=== PATIENT | female | born 1975 | race Caucasian/White ===

== ENCOUNTER → 2017-01-04 | Outpatient (CLI) | payer MEDICAID ==
[~2017-01-04] MED LIST: ALBU8.5H2 IH; FLUT1DIS26 IH; HYDR-3456 PO; HYDR-3812 PO; HYDR25TA4 PO; IBUP-1773 PO; IBUP800T26 PO; LEVO25TA5 PO; LIRA0.6P3 SQ; LISI-552 PO; METF500T4 PO; ORPH100T PO; PRED20TA PO; RT-ALBUINH IH; TIOT18CA2 IH
--- NOTE | 2017-01-04 18:20 | Diagnostic Imaging Report ---
Digital mammogram bilateral screening. This is the patient's baseline study. At this time, there are no current complaints. The current study was also evaluated with a Computer Aided Detection (CAD) system. FINDINGS: The fibroglandular tissue in both breasts is heterogeneously dense. This does limit the sensitivity of this exam. There is no primary or secondary sign of malignancy noted. There are few benign-appearing calcifications in both breasts. IMPRESSION: 1. There is no evidence for malignancy. 2. The patient should have her annual bilateral screening mammogram on schedule in December of 2017. ACR BI-RADS Category 1: Negative. Result letter will be mailed to the patient. Note: At least 10% of breast cancer is not imaged by mammography. Dictated by: Dictated on workstation # [id number]
== END ==
LOC: RAD 14:07
PROVIDERS: ATTEND Nurse Practitioner Community Health
DX: Z12.31 Encounter for screening mammogram for malignant neoplasm of breast (principal)
CPT/HCPCS: 77067

== ENCOUNTER 2017-01-06 10:00 | Outpatient (RCR) | payer MEDICAID ==
[~2017-01-06 10:00] MED LIST changes: -FLUT1DIS26 IH; -HYDR-3812 PO; -LIRA0.6P3 SQ; -RT-ALBUINH IH; -TIOT18CA2 IH
== END 2017-01-09 | disposition home or self-care (01) ==
LOC: PULM 10:00
PROVIDERS: ATTEND Nurse Practitioner Family
DX: R06.00 Dyspnea, unspecified (principal); R09.02 Hypoxemia
CPT/HCPCS: 94799; 99211

== ENCOUNTER 2017-01-20 09:10 | Outpatient (RCR) | payer MEDICAID ==
[2017-02-02] MEDS ORDERED: RT-ALBUINH IH (10:45)
[2017-02-02] MEDS ORDERED: TIOT18CA2 IH (10:45)
[2017-02-02] MEDS ORDERED: FLUT1DIS26 IH (10:45)
[2017-02-02] MEDS ORDERED: LIRA0.6P3 SQ (10:45)
[2017-02-16] MEDS ORDERED: HYDR-3812 PO (08:45)
== END 2017-04-20 | disposition home or self-care (01) ==
LOC: PULM 09:10
PROVIDERS: ATTEND Nurse Practitioner Family
DX: R06.00 Dyspnea, unspecified (principal); R09.02 Hypoxemia

== ENCOUNTER 2017-02-02 10:30 | Outpatient (CLI) | payer MEDICAID ==
[~2017-02-02] VITALS: Ht 154.9 cm; Wt 116.6 kg
[2017-02-02 10:40] VITALS: BP 137/81
[2017-02-02] MEDS ORDERED: FLUT1DIS26 IH (10:45)
[2017-02-02] MEDS ORDERED: LIRA0.6P3 SQ (10:45)
[2017-02-02] MEDS ORDERED: TIOT18CA2 IH (10:45)
[2017-02-02] MEDS ORDERED: RT-ALBUINH IH (10:45)
== END 2017-02-02 10:50 | disposition home or self-care (01) ==
LOC: PREOP 10:30
PROVIDERS: ATTEND Orthopaedic Surgery
DX: Z01.818 Encounter for other preprocedural examination (principal); Z11.2 Encounter for screening for other bacterial diseases; G56.01 Carpal tunnel syndrome, right upper limb
CPT/HCPCS: 87081

== ENCOUNTER 2017-02-16 06:00 | Day surgery (SDC) | payer MEDICAID ==
--- NOTE | 2017-02-08 14:30 | HISTORY AND PHYSICAL ---
DATE OF ADMISSION: 02/16/2017 This will be for outpatient for right carpal tunnel release. HISTORY: The patient is a 41-year-old left hand dominant female with complaints of right hand pain and paresthesias. She underwent an EMG nerve conduction which revealed evidence of right carpal tunnel syndrome. She reports night pain. She reports paresthesias. She reports activity limitations because of the hand. She reports it has been off and on over the last several years but has worsened over the last few months and due to functional impairment, the patient has elected to proceed with surgical intervention. REVIEW OF SYSTEMS: No chest pain, no shortness of breath. No dysuria. PAST MEDICAL HISTORY: 1. Back pain. 2. COPD. 3. Hypertension. 4. Hypothyroidism. 5. Sleep apnea. 6. Sciatica. 7. Hypoxemia "borderline" diabetic. PAST SURGICAL HISTORY: . FAMILY HISTORY: Hypertension. PRIMARY CARE PROVIDER: [facility]. MEDICATIONS: 1. Victoza. 2. Spiriva. 3. Ventolin. 4. Advair. 5. Metformin. 6. Hydrochlorothiazide. 7. Levothyroxine. 8. Lisinopril. ALLERGIES: No known drug allergies. SOCIAL HISTORY: The patient denies alcohol use. She is a former smoker. PHYSICAL EXAMINATION: The patient is well-developed, well-nourished, in no acute distress. HEENT: Normocephalic, atraumatic. Pupils are equal, round, and active to light. Oropharynx is clear. NECK: Supple with no lymphadenopathy. LUNGS: Clear to auscultation bilaterally. HEART: Regular rate and rhythm. ABDOMEN: Soft, nontender, nondistended. EXTREMITY EXAM: The right hand demonstrates positive Tinel's of carpal tunnel with positive Phalen's maneuver. She has 5/5 thumb palmar abduction strength. Sensation is intact in radial, ulnar and median distribution. IMPRESSION: Right carpal tunnel syndrome. PLAN: Right open carpal tunnel release. The risks, benefits, options, ramifications and recovery have been discussed at length with the patient. She understands and wishes to proceed. Job ID: [id number] Dictated Date: 02/08/2017 13:12:39 Blackjack Supervisor Date: 02/08/2017 14:23:55/robin
[~2017-02-16] VITALS: Ht 154.9 cm; Wt 116.6 kg
[~2017-02-16 06:00] MED LIST changes: +FLUT1DIS26 IH; +LIRA0.6P3 SQ; +RT-ALBUINH IH; +TIOT18CA2 IH
[2017-02-16] MEDS ORDERED: ceFAZolin 1,000 MG (ANCEF) VIAL ONE (06:23)
[2017-02-16] MEDS ORDERED: NS (IVPB) 50 ML ONE (06:23)
[2017-02-16] MEDS ORDERED: LACTATED RINGERS 1,000 ML IV PRN (06:34)
[2017-02-16] MEDS ORDERED: MIDAZOLAM 2 MG/2 ML (VERSED) VIAL ONE (06:47)
[2017-02-16] MEDS ORDERED: PROPOFOL INJECTION 50 ML IV ONE (06:47)
[2017-02-16] MEDS ORDERED: fentaNYL INJECTION 100 MCG/2 ML AMP ONE (06:47)
[2017-02-16] MEDS ORDERED: MIDAZOLAM 10 MG/2 ML (VERSED) VIAL ONE (06:50)
[2017-02-16 06:53] VITALS: BP 149/98
[2017-02-16] MEDS ORDERED: ceFAZolin 1 GM/NS 50 ML IVPB IV ONE ×2 (07:00)
[2017-02-16] MEDS ORDERED: BUPIVACAINE 0.25% 30 ML (SENSORCAINE) VIAL ONE (07:07)
[2017-02-16] MEDS ORDERED: LIDOCAINE 1% INJ 20 ML (XYLOCAINE) VIAL ONE (07:07)
[2017-02-16] MEDS ORDERED: BUPIVACAINE 0.5% 30 ML (SENSORCAINE) VIAL ONE (07:09)
[2017-02-16] MEDS ORDERED: HYDROcodone/APAP 5 MG/325 MG (LORTAB) TAB PO PRN (07:15)
--- NOTE | 2017-02-16 07:24 | Progress Note-Pre Operative ---
Pre-Operative Progress Note H&P Reviewed The H&P was reviewed, patient examined and no changes noted. Date H&P Reviewed: Feb 16, 2017 Time H&P Reviewed: 07:11 Pre-Operative Diagnosis: right carpal tunnel syndrome LEE VILLEGAS MD Feb 16, 2017 07:24
--- NOTE | 2017-02-16 07:25 | Progress Note-Post Operative ---
Post-Operative Progess Note Surgeon (s)/Rubber Stamp Maker (s) Surgeon LEE VILLEGAS MD Rubber Stamp Maker: Preston Vines Pre-Operative Diagnosis right carpal tunnel syndrome Post-Operative Diagnosis right carpal tunnel syndrome Post-Op Procedure Note Date of Procedure: Feb 16, 2017 Name of Procedure Performed: right carpal tunnel release Description of the Procedure: see operative note Findings of the Procedure see operative note Anesthesia Type MAC plus local Estimated blood loss (mL): minimal Packing: none Specimen(s) collected/removed none LEE VILLEGAS MD Feb 16, 2017 07:25
[2017-02-16] MEDS ORDERED: morphine INJ 10 MG/ML 1ML (SYR OR VIAL) IVP PRN (08:15)
[2017-02-16] MEDS ORDERED: ONDANSETRON 4 MG/2 ML (SDV) Z0FRAN IVP PRN (08:15)
[2017-02-16] MEDS ORDERED: MEPERIDINE (DEMEROL) INJ 50 MG/ML IVP PRN (08:15)
[2017-02-16 08:40] VITALS: BP 111/63
[2017-02-16] MEDS ORDERED: HYDR-3812 PO (08:45)
[2017-02-16 09:10] VITALS: BP 110/57
--- NOTE | 2017-02-16 13:59 | OPERATIVE REPORT ---
PROCEDURE PHYSICIAN: LEE VILLEGAS DATE OF PROCEDURE: 02/16/2017 PREOPERATIVE DIAGNOSIS: Right carpal tunnel syndrome. POSTOPERATIVE DIAGNOSIS: Right carpal tunnel syndrome. PROCEDURES: Right open carpal tunnel release. SURGEON: Ivette HAZ TECH: Preston Vines who assisted throughout the procedure and closed the incision. ANESTHESIA: Monitored anesthesia care plus local by Preston Aggarwal CRNA. TOURNIQUET TIME: 4 minutes at 250 mmHg. ESTIMATED BLOOD LOSS: Minimal. DRAINS: None. COMPLICATIONS: None. POSTOPERATIVE PLAN: Routine protocol. The patient was transported to recovery room, awake, in stable condition. STATEMENT OF MEDICAL NECESSITY: The patient is a 41-year-old, dpzen-[id number] female with complaints of right hand pain and paresthesias. She underwent an EMG nerve conduction which showed evidence of right carpal tunnel syndrome. Due to functional impairment and failure to improve with conservative measures, the patient elected to proceed with surgical intervention. PROCEDURE: After risks and benefits of the procedure were discussed and questions were answered an informed consent signed and placed on chart. The operative site was confirmed in the preoperative holding and initialed by the surgeon. The patient was then transported to the operating room and monitored anesthesia care were obtained, a timeout was called confirming the operative site. Under sterile conditions, the incision site on the volar aspect of the right hand was infiltrated with combination of plain lidocaine and plain Marcaine. The right upper extremity was then prepped and draped in the usual sterile fashion. With arm elevated, the tourniquet was inflated to 250 mmHg. A longitudinal incision was made in line with the radial border of the ring finger over the transverse carpal ligament. The underlying soft tissues were carefully dissected. The transverse carpal ligament was identified and incised by pushing through with a scalpel blade while carefully protecting the median nerve. The median nerve was identified and carefully protected throughout the procedure. Proximally the transverse carpal ligament was spread above and below with dissection scissors and then under direct visualization, was opened with slightly open scissor edges while carefully protecting the median nerve. This was confirmed fully freed with a [place]. The tourniquet was deflated for total tourniquet time of 4 minutes. Pressure used for hemostasis. The wound was copiously irrigated and closed with 4-0 nylon in running, alternating horizontal mattress fashion. A soft dressing and brace were applied. The patient was transported to recovery room, awake, in stable condition. Job ID: [id number] Dictated Date: 02/16/2017 08:02:00 Personnel Records Clerk Date: 02/16/2017 13:52:44 / arnel
--- OUTSIDE RECORDS SUMMARY | 2017-03-20 16:03 | XMS REPORT ---
Author Author MICHELLE HAMMOND Organization e[employer] Address Unknown Phone Unavailable Care Team Providers Care Medical Reception Name Role Phone MICHELLE HAMMOND CP Unavailable Allergies, Adverse Reactions, Alerts Substance Reaction Event Type N.K.D.A. Info Not Available Non Drug Allergy Problems Problem Type Condition Code Onset Dates Condition Status Problem Degenerative disc disease, lumbar M51.36 Active Assessment Hyperinsulinemia 251.1 Active Problem Obstructive sleep apnea syndrome G47.33 Active Assessment Edema, due to unspecified malnutrition type, unspecified edema R60.9 Active Assessment Pain of hand, unspecified laterality M79.643 Active Assessment Vision changes H53.9 Active Medications Medication Code System Code Instructions Start Date End Date Status Dosage Levothyroxine Sodium [facility] 06284675803 25 MCG Orally Once a day 1 tablet Wrist Splint NDC 0 N/A at hs Sep 08, 2015 2 Ortho-Cyclen (28) [facility] [address]-84 0.25-35 MG-MCG Orally Once a day Aug 11, 2015 1 tablet Oxygen NDC 0 2 inhalation continous not defined Hydrochlorothiazide [facility] [address]-17 25 MG Orally Once a day Sep 08, 2015 1 tablet MetFORMIN HCl ER [facility] [address]-93 500 MG Orally 2 times a day June 05, 2015 2 tablet Procedures Procedure Coding System Code Date Office Visit, Est Pt., Level 3 CPT-4 64539 Sep 08, 2015 Vital Signs Date/Time: Sep 08, 2015 Temperature 97.1 F Weight 307 lbs Height 60 in BMI 59.95 Index Blood Pressure Diastolic 80 mmHg Blood Pressure Systolic 140 mmHg Cardiac Monitoring Heart Rate 80 bpm Results No Known Results Summary Purpose eClinicalWorks Submission
--- OUTSIDE RECORDS SUMMARY | 2017-03-20 16:03 | XMS REPORT ---
Author Author MICHELLE HAMMOND Organization [employer] Address Unknown Phone Unavailable Care Team Providers Care Diabetes Manager Name Role Phone MICHELLE HAMMOND CP Unavailable Allergies, Adverse Reactions, Alerts Substance Reaction Event Type N.K.D.A. Info Not Available Non Drug Allergy Problems Problem Type Condition Code Onset Dates Condition Status Assessment Dysfunction of right eustachian tube H69.81 Active Problem Heavy menstrual bleeding N92.0 Active Problem History of amenorrhea Z87.42 Active Problem Stress incontinence in female N39.3 Active Problem Degenerative disc disease, lumbar M51.36 Active Assessment Essential hypertension I10 Active Problem BMI 50.0-59.9, adult Z68.43 Active Problem Obstructive sleep apnea syndrome G47.33 Active Medications Medication Code System Code Instructions Start Date End Date Status Dosage Hydrochlorothiazide [facility] [address]-99 25 MG Orally Once a day Sep 08, 2015 1 tablet MetFORMIN HCl ER [facility] [address]-78 500 MG Orally 2 times a day June 05, 2015 2 tablet Oxygen NDC 0 2 inhalation continous not defined Lisinopril [facility] [address]-96 20 MG Orally once a day Oct 16, 2015 1 tablet Levothyroxine Sodium [facility] 47223395646 25 MCG Orally Once a day 1 tablet Wrist Splint NDC 0 N/A at Sep 08, 2015 2 Procedures Procedure Coding System Code Date Office Visit, Est Pt., Level 3 CPT-4 06028 Oct 16, 2015 Vital Signs Date/Time: Oct 16, 2015 Temperature 98.1 F Weight 296.2 lbs Height 60 in BMI 57.84 Index Blood Pressure Diastolic 90 mmHg Blood Pressure Systolic 122 mmHg Cardiac Monitoring Heart Rate 92 bpm Results No Known Results Summary Purpose eClinicalWorks Submission
--- OUTSIDE RECORDS SUMMARY | 2017-03-20 16:03 | XMS REPORT ---
Author Author MICHELLE HAMMOND Organization [employer] Address Unknown Phone Unavailable Care Team Providers Care Carpet Sewer Name Role Phone MICHELLE HAMMOND CP Unavailable Allergies, Adverse Reactions, Alerts Substance Reaction Event Type N.K.D.A. Info Not Available Non Drug Allergy Problems Problem Type Condition Code Onset Dates Condition Status Assessment Hyperinsulinemia E16.1 Active Problem Degenerative disc disease, lumbar M51.36 Active Assessment Essential hypertension I10 Active Problem Hyperinsulinemia E16.1 Active Problem Stress incontinence in female N39.3 Active Problem Essential hypertension I10 Active Problem BMI 50.0-59.9, adult Z68.43 Active Problem Obstructive sleep apnea syndrome G47.33 Active Problem Heavy menstrual bleeding N92.0 Active Problem History of amenorrhea Z87.42 Active Medications Medication Code System Code Instructions Start Date End Date Status Dosage Wrist Splint NDC 0 N/A at hs Sep 08, 2015 2 MetFORMIN HCl ER [facility] [address]-59 500 MG Orally 2 times a day June 05, 2015 2 tablet Oxygen NDC 0 2 inhalation continous not defined Levothyroxine Sodium [facility] 66925041756 25 MCG Orally Once a day 1 tablet Lisinopril [facility] [address]-90 20 MG Orally once a day Oct 16, 2015 1 tablet Hydrochlorothiazide [facility] [address]-19 25 MG Orally Once a day Sep 08, 2015 1 tablet Procedures Procedure Coding System Code Date Office Visit, Est Pt., Level 3 CPT-4 57716 Dec 02, 2015 Vital Signs Date/Time: Dec 02, 2015 Temperature 97.9 F Weight 296 lbs Height 60 in BMI 57.80 Index Blood Pressure Diastolic 78 mmHg Blood Pressure Systolic 132 mmHg Cardiac Monitoring Heart Rate 90 bpm Results No Known Results Summary Purpose eClinicalWorks Submission
--- OUTSIDE RECORDS SUMMARY | 2017-03-20 16:03 | XMS REPORT ---
Author Author MICHELLE HAMMOND Organization [employer] Address Unknown Phone Unavailable Care Team Providers Care Molding Technician Name Role Phone MICHELLE HAMMOND CP Unavailable Allergies No Known Allergies Problems Problem Type Condition ICD-9 Code Onset Dates Condition Status Assessment Hyperinsulinemia 251.1 Active Assessment Hypothyroid 244.9 Active Medications No Known Medications Procedures Procedure Coding System Code Date ASSAY THYROID STIM HORMONE CPT-4 47421 Jul 17, 2015 VENIPUNCT, ROUTINE* CPT-4 64605 Jul 17, 2015 ASSAY OF INSULIN CPT-4 15438 Jul 17, 2015 Results Name Result Date Reference Range Unit Abnormality Flag ROUTINE VENIPUNCTURE Summary Purpose eClinicalWorks Submission
--- OUTSIDE RECORDS SUMMARY | 2017-03-20 16:04 | XMS REPORT ---
Author Author ALIE HERNANDEZ [facility] eClinicalWorks Address Unknown Phone Unavailable Care Team Providers Care Surgical Manager Name Role Phone ALEI HERNANDEZ CP Unavailable Allergies, Adverse Reactions, Alerts Substance Reaction Event Type N.K.D.A. Info Not Available Non Drug Allergy Problems Problem Type Condition Code Onset Dates Condition Status Assessment Heavy menstrual bleeding N92.0 Active Problem Heavy menstrual bleeding N92.0 Active Problem History of amenorrhea Z87.42 Active Problem Stress incontinence in female N39.3 Active Problem Degenerative disc disease, lumbar M51.36 Active Assessment History of amenorrhea Z87.42 Active Problem BMI 50.0-59.9, adult Z68.43 Active Problem Obstructive sleep apnea syndrome G47.33 Active Medications Medication Code System Code Instructions Start Date End Date Status Dosage Hydrochlorothiazide [facility] [address]-63 25 MG Orally Once a day Sep 08, 2015 1 tablet Oxygen NDC 0 2 inhalation continous not defined Wrist Splint NDC 0 N/A at hs Sep 08, 2015 2 Levothyroxine Sodium [facility] 89170590705 25 MCG Orally Once a day 1 [place] [address]-87 500 MG Orally 2 times a day June 05, 2015 2 tablet Procedures Procedure Coding System Code Date URINE TEST CPT-4 94008 Oct 06, 2015 ASSAY OF PROLACTIN CPT-4 21724 Oct 06, 2015 BIOPSY OF UTERUS LINING CPT-4 93847 Oct 06, 2015 VENIPUNCT, ROUTINE* CPT-4 16268 Oct 06, 2015 Vital Signs Date/Time: Oct 06, 2015 Temperature 97.8 F Weight 294.2 lbs Height 60 in BMI 57.45 Index Blood Pressure Diastolic 82 mmHg Blood Pressure Systolic 140 mmHg Cardiac Monitoring Heart Rate 100 bpm Results Name Result Date Reference Range Unit Abnormality Flag TEST, URINE (IN HOUSE) ENDOMETRIAL BIOPSY Summary Purpose eClinicalWorks Submission
--- OUTSIDE RECORDS SUMMARY | 2017-03-20 16:04 | XMS REPORT ---
Author Author ALIE HERNANDEZ [facility] eClinicalWorks Address Unknown Phone Unavailable Care Team Providers Care Hull Sorter Name Role Phone ALIE HERNANDEZ Unavailable Allergies No Known Allergies Problems Problem Type Condition Code Onset Dates Condition Status Assessment Heavy menstrual bleeding N92.0 Active Assessment Stress incontinence in female N39.3 Active Problem Heavy menstrual bleeding N92.0 Active Problem History of amenorrhea Z87.42 Active Problem Stress incontinence in female N39.3 Active Problem Degenerative disc disease, lumbar M51.36 Active Assessment History of amenorrhea Z87.42 Active Problem BMI 50.0-59.9, adult Z68.43 Active Problem Obstructive sleep apnea syndrome G47.33 Active Medications No Known Medications Procedures Procedure Coding System Code Date ASSAY OF PROLACTIN CPT-4 61346 Sep 15, 2015 Results No Known Results Summary Purpose eClinicalWorks Submission
--- OUTSIDE RECORDS SUMMARY | 2017-03-20 16:04 | XMS REPORT ---
Author Author MICHELLE HAMMOND Organization [employer] Address Unknown Phone Unavailable Care Team Providers Care Electrical Continuity Inspector Name Role Phone MICHELLE HAMMOND CP Unavailable Allergies No Known Allergies Problems No Known Problems Medications No Known Medications Results No Known Results Summary Purpose eClinicalWorks Submission
--- OUTSIDE RECORDS SUMMARY | 2017-03-20 16:04 | XMS REPORT ---
Author Author MICHELLE HAMMOND [facility] Address [address] [place] [address] Care Team Providers Care Offal Baler Name Role Phone MICHELLE HAMMOND Unavailable PROBLEMS Type Condition ICD9-CM Code SQE80-EO Code Onset Dates Condition Status SNOMED Code Problem Degenerative disc disease, lumbar M51.36 Active 39845175 Problem BMI 50.0-59.9, adult Z68.43 Active 819660121 Problem Obstructive sleep apnea syndrome G47.33 Active 70868249 Assessment Hypothyroidism, unspecified type E03.9 Jun, Active 48123453 Assessment Essential hypertension I10 Jun, Active 90910633 Problem Hypoxemia R09.02 Active 266386639 Problem Morbid obesity, unspecified obesity type E66.01 Active 838680073 Problem Essential hypertension I10 Active 70098991 Problem Heavy menstrual bleeding N92.0 Active 174811945 Problem History of amenorrhea Z87.42 Active 410407444 Problem Hyperinsulinemia E16.1 Active 14487183 Problem Stress incontinence in female N39.3 Active 12135037 ALLERGIES Substance Reaction Event Type Date Status N.K.D.A. Unknown Non Drug Allergy Jun, Unknown SOCIAL HISTORY No smoking Hx information available PLAN OF CARE VITAL SIGNS Height 60 in 2016-07-08 Weight 258.4 lbs 2016-07-08 Heart Rate 118 bpm 2016-07-08 Respiratory Rate 22 2016-07-08 BMI 50.46 kg/m2 2016-07-08 Blood pressure systolic 160 mmHg 2016-07-08 Blood pressure diastolic 90 mmHg 2016-07-08 MEDICATIONS Medication Instructions Dosage Frequency Start Date End Date Duration Status Levothyroxine Sodium 25 MCG Orally Once a day 1 tablet 24h 90 Active Oxygen 2 inhalation continous Active Lisinopril 20 mg Orally once a day 1 tablet 24h Oct, Active Hydrochlorothiazide 25 MG Orally Once a day 1 tablet 24h 90 Active MetFORMIN HCl ER 500 MG Orally 2 times a day 2 tablet 12h 90 Active RESULTS Name Result Date Reference Range TSH 2016-07-08 TSH 3.530 0.450-4.500 INSULIN LEVEL 2016-07-08 Insulin 20.0 2.6-24.9 CBC 2016-07-08 WBC 11.7 3.4-10.8 RBC 4.33 3.77-5.28 Hemoglobin 12.1 11.1-15.9 Hematocrit 37.1 34.0-46.6 MCV 86 79-97 MCH 27.9 26.6-33.0 MCHC 32.6 31.5-35.7 RDW 14.5 12.3-15.4 Platelets 451 150-379 Neutrophils 63 Lymphs 27 Monocytes 6 Eos 4 Basos 0 Neutrophils (Absolute) 7.3 1.4-7.0 Lymphs (Absolute) 3.2 0.7-3.1 Monocytes(Absolute) 0.7 0.1-0.9 Eos (Absolute) 0.4 0.0-0.4 Baso (Absolute) 0.0 0.0-0.2 Immature Granulocytes 0 Immature Grans (Abs) 0.0 0.0-0.1 LIPID PANEL 2016-07-08 Cholesterol, Total 162 100-199 Triglycerides 82 0-149 HDL Cholesterol 37 >39 VLDL Cholesterol Boom 16 5-40 LDL Cholesterol Calc 109 0-99 CMP 2016-07-08 Glucose, Serum 100 65-99 BUN 8 6-24 Creatinine, Serum 0.62 0.57-1.00 eGFR If NonAfricn Am 112 >59 eGFR If Africn Am 130 >59 BUN/Creatinine Ratio 13 9-23 Sodium, Serum 139 134-144 Potassium, Serum 4.2 3.5-5.2 Chloride, Serum 95 97-108 Carbon Dioxide, Total 26 18-29 Calcium, Serum 9.7 8.7-10.2 Protein, Total, Serum 7.2 6.0-8.5 Albumin, Serum 4.2 3.5-5.5 Globulin, Total 3.0 1.5-4.5 A/G Ratio 1.4 1.1-2.5 Bilirubin, Total 0.4 0.0-1.2 Alkaline Phosphatase, S 82 39-117 AST (SGOT) 11 0-40 ALT (SGPT) 19 0-32 PROCEDURES Procedure Date Ordered Related Diagnosis Body Site LAB NOT BILLED BY [facility] Jul 08, 2016 VENIPUNCT, ROUTINE* Jul 08, 2016 Office Visit, Est Pt., Level 3 Jul 08, 2016 IMMUNIZATIONS No Known Immunizations
--- OUTSIDE RECORDS SUMMARY | 2017-03-20 16:04 | XMS REPORT ---
Author Author ALIE HERNANDEZ [employer] Address Unknown Phone Unavailable Care Team Providers Care Farm Contractor Name Role Phone ALIE HERNANDEZ Unavailable Allergies, Adverse Reactions, Alerts Substance Reaction Event Type N.K.D.A. Info Not Available Non Drug Allergy Problems Problem Type Condition Code Onset Dates Condition Status Assessment Heavy menstrual bleeding N92.0 Active Assessment Stress incontinence in female N39.3 Active Assessment Pap smear for cervical cancer screening Z12.4 Active Assessment BMI 50.0-59.9, adult Z68.43 Active Assessment History of amenorrhea Z87.42 Active Problem Heavy menstrual bleeding N92.0 Active Problem History of amenorrhea Z87.42 Active Problem Stress incontinence in female N39.3 Active Problem Degenerative disc disease, lumbar M51.36 Active Assessment Vaginal discharge N89.8 Active Problem BMI 50.0-59.9, adult Z68.43 Active Problem Obstructive sleep apnea syndrome G47.33 Active Medications Medication Code System Code Instructions Start Date End Date Status Dosage Oxygen NDC 0 2 inhalation continous not defined Levothyroxine Sodium [facility] 50742142931 25 MCG Orally Once a day 1 tablet Wrist Splint NDC 0 N/A at hs Sep 08, 2015 2 Ortho-Cyclen (28) [facility] [address]-78 0.25-35 MG-MCG Orally Once a day Aug 11, 2015 1 tablet MetFORMIN HCl ER [facility] [address]-41 500 MG Orally 2 times a day June 05, 2015 2 tablet Procedures Procedure Coding System Code Date COMPLETE CBC W/AUTO DIFF WBC CPT-4 35627 Sep 09, 2015 No Charge CPT-4 65733 Sep 09, 2015 SPECIMEN HANDLING CPT-4 44580 Sep 09, 2015 Office Visit, Est Pt., Level 4 CPT-4 53310 Sep 09, 2015 URINE TEST CPT-4 77537 Sep 09, 2015 CULTURE, BACTERIA, OTHER CPT-4 77326 Sep 09, 2015 TRICHOMONAS VAGIN, DIR PROBE CPT-4 04227 Sep 09, 2015 VENIPUNCT, ROUTINE* CPT-4 70139 Sep 09, 2015 COMPREHEN METABOLIC PANEL CPT-4 59879 Sep 09, 2015 Vital Signs Date/Time: Sep 09, 2015 Temperature 98.0 F Weight 306.4 lbs Height 60 in BMI 59.83 Index Blood Pressure Diastolic 88 mmHg Blood Pressure Systolic 166 mmHg Cardiac Monitoring Heart Rate 92 bpm Results Name Result Date Reference Range Unit Abnormality Flag ROUTINE VENIPUNCTURE Summary Purpose eClinicalWorks Submission
--- OUTSIDE RECORDS SUMMARY | 2017-03-20 16:04 | XMS REPORT | Continuity of Care Document ---
Author Author [facility] Organization [facility] Address Unknown Phone Unavailable Allergies Active Description Code Type Severity Reaction Onset Reported/Identified Relationship to Patient Clinical Status Yes No Known Drug Allergies [id number] Drug Allergy Unknown N/ A 04/24/2015 Medications Problems Date Dx Coded Attending Type Code Diagnosis Diagnosed By 04/28/2015 DWIGHT RAMIREZ, OZ Jimenes Ot 278.01 04/28/2015 DWIGHT RAMIREZ, OZ Jimenes Ot 466.0 04/28/2015 DWIGHT RAMIREZ, OZ Jimenes Ot 780.57 04/28/2015 DWIGHT RAMIREZ, OZ Jimenes Ot 790.29 04/28/2015 OZ QUINTANILLA MD Ot V85.44 04/28/2015 DWIGHT RAMIREZ, OZ Jimenes Ot 278.01 04/28/2015 DWIGHT RAMIREZ, OZ Jimenes Ot 278.03 OBESITY HYPOVENTILATION SYNDROME 04/28/2015 DWIGHT RAMIREZ, OZ Jimenes Ot 466.0 ACUTE BRONCHITIS 04/28/2015 DWIGHT RAMIREZ, OZ Jimenes Ot 486 PNEUMONIA, ORGANISM NOS 04/28/2015 DWIGHT RAMIREZ, OZ Jimenes Ot 518.83 CHRONIC RESPIRATORY FAILURE 04/28/2015 DWIGHT RAMIREZ, OZ Jimenes Ot 780.57 UNSPECIFIED SLEEP APNEA 04/28/2015 DWIGHT RAMIREZ, OZ Jimenes Ot 790.29 OTHER ABNORMAL GLUCOSE 04/28/2015 DWIGHT RAMIREZ, OZ Jimenes Ot 799.02 HYPOXEMIA 04/28/2015 DWIGHT RAMIREZ, OZ Jimenes Ot V85.44 BODY MASS INDEX 60.0-69.9, ADULT 05/23/2015 BOUCHRA RAMIREZ, MERCEDEZ Price Ot 722.52 LUMB/LUMBOSAC DISC DEGEN 05/23/2015 BOUCHRA RAMIREZ, MERCEDEZ Price Ot 724.2 LUMBAGO 06/06/2015 OMID HOLLAND DO Ot 278.01 06/06/2015 OMID HOLLAND DO Ot 786.09 06/06/2015 OMID HOLLAND DO Ot 799.02 06/23/2015 AMALIA DO, OMID M Ot 278.01 06/23/2015 AMALIA DO, OMID M Ot 786.09 06/23/2015 AMALIA DO, OMID M Ot 799.02 06/23/2015 AMALIA DO, OMID M Ot 278.01 06/23/2015 AMALIA DO, OMID M Ot 786.09 06/23/2015 AMALIA DO, OMID M Ot 799.02 06/23/2015 AMALIA DO, OMID M Ot 278.01 06/23/2015 AMALIA DO, OMID M Ot 786.09 06/23/2015 AMALIA DO, OMID M Ot 799.02 06/27/2015 AMALIA DO, OMID M Ot 278.01 06/27/2015 AMALIA DO, OMID M Ot 786.09 06/27/2015 AMALIA DO, OMID M Ot 799.02 07/02/2015 AMALIA DO, OMID M Ot 278.01 07/02/2015 AMALIA DO, OMID M Ot 786.09 07/02/2015 AMALIA DO, OMID M Ot 799.02 07/02/2015 AMALIA DO, OMID M Ot 278.01 07/02/2015 AMALIA DO, OMID M Ot 786.09 07/02/2015 AMALIA DO, OMID M Ot 799.02 07/03/2015 AMALIA DO, OMID M Ot 278.01 07/03/2015 AMALIA DO, OMID M Ot 786.09 07/03/2015 AMALIA DO, OMID M Ot 799.02 07/03/2015 AMALIA DO, OMID M Ot 278.01 07/03/2015 AMALIA DO, OMID M Ot 786.09 07/03/2015 AMALIA DO, OMID M Ot 799.02 07/08/2015 AMALIA DO, OMID M Ot 278.01 07/08/2015 AMALIA DO, OMID M Ot 786.09 07/08/2015 AMALIA DO, OMID M Ot 799.02 07/09/2015 AMALIA DO, OMID M Ot 278.01 07/09/2015 AMALIA DO, OMID M Ot 786.09 07/09/2015 AMALIA DO, OMID M Ot 799.02 07/12/2015 MICHELLE HAMMOND Ot 327.23 OBSTRUCTIVE SLEEP APNEA (ADULT) ( PEDIATR 08/01/2015 OMID HOLLAND DO Ot 278.01 08/01/2015 OMID HOLLAND DO Ot 786.09 08/01/2015 OMID HOLLAND DO Ot 799.02 09/29/2015 ALIE HERNANDEZ BURLAPPER Ot N92.0 09/29/2015 ALIE HERNANDEZ BURLAPPER Ot Z87.42 10/25/2015 OMID HOLLAND DO Ot 278.01 10/25/2015 OMID HOLLAND DO Ot 786.09 10/25/2015 OMID HOLLAND DO Ot 799.02 10/25/2015 SHERRY RAMIREZ, JOSSELIN Tran (DDU) Ot 496 10/25/2015 JOSSELIN POWELL MD (DDU) Ot V70.3 10/25/2015 ALIE HERNANDEZ BURLAPPER Ot N92.0 10/25/2015 ALIE HERNANDEZ BURLAPPER Ot Z87.42 11/06/2015 JUAN MEYER LEE S Ot E66.01 MORBID (SEVERE) OBESITY DUE TO EXCESS CA 11/06/2015 HENRIQUEECH DO LEE S Ot N93.9 ABNORMAL UTERINE AND VAGINAL BLEEDING, U 11/06/2015 HENRIQUEECH DO LEE S Ot R93.8 ABNORMAL FINDINGS ON DIAGNOSTIC IMAGING 11/06/2015 HENRIQUEECH DO LEE S Ot Z68.43 BODY MASS INDEX (BMI) 50-59.9 , ADULT 11/13/2015 HENRIQUEECH DO LEE S Ot N93.9 11/13/2015 FENECH DO LEE S Ot R93.8 11/13/2015 FENECH DO LEE S Ot Z01.812 11/13/2015 FENECH DO LEE S Ot Z11.2 10/12/2016 RUSH AGUILAR BURLAPPER Ot R06.00 DYSPNEA, UNSPECIFIED 10/12/2016 RUSH AGUILAR BURLAPPER Ot R09.02 HYPOXEMIA 10/21/2016 RUSH AGUILAR BURLAPPER Ot E66.01 MORBID (SEVERE) OBESITY DUE TO EXCESS CA 10/21/2016 RUSH AGUILAR BURLAPPER Ot R06.00 DYSPNEA, UNSPECIFIED 10/21/2016 RUSH AGUILAR BURLAPPER Ot R09.02 HYPOXEMIA 10/21/2016 RUSH AGUILAR BURLAPPER Ot E66.01 MORBID (SEVERE) OBESITY DUE TO EXCESS CA 10/21/2016 JEFFDEB GARCIAINE Hal BURLAPPER Ot R06.00 DYSPNEA, UNSPECIFIED 10/21/2016 JEFFDEB GARCIAINE Hal BURLAPPER Ot R09.02 HYPOXEMIA 10/21/2016 JEFFDEB GARCIAINE Hal BURLAPPER Ot E66.01 MORBID (SEVERE) OBESITY DUE TO EXCESS CA 10/21/2016 JEFF RUSH Hal BURLAPPER Ot R06.00 DYSPNEA, UNSPECIFIED 10/21/2016 JEFF, RUSH Hal BURLAPPER Ot R09.02 HYPOXEMIA 10/26/2016 JEFF, RUSH Hal BURLAPPER Ot E66.01 MORBID (SEVERE) OBESITY DUE TO EXCESS CA 10/26/2016 JEFFDEB GARCIAINE Hal BURLAPPER Ot R06.00 DYSPNEA, UNSPECIFIED 10/26/2016 JEFFDEB GARCIAINE Hal BURLAPPER Ot R09.02 HYPOXEMIA 10/27/2016 DEB AGUILARINE Hal BURLAPPER Ot R06.00 DYSPNEA, UNSPECIFIED 10/27/2016 JEFFRUSH GARCIA BURLAPPER Ot R09.02 HYPOXEMIA 11/03/2016 RUSH AGUILAR BURLAPPER Ot E66.01 MORBID (SEVERE) OBESITY DUE TO EXCESS CA 11/03/2016 DEB AGUILARINE Hal BURLAPPER Ot R06.00 DYSPNEA, UNSPECIFIED 11/03/2016 RUSH AGUILAR BURLAPPER Ot R09.02 HYPOXEMIA 01/03/2017 OMID HOLLAND DO Ot 278.01 MORBID OBESITY 01/03/2017 OMID HOLLAND DO Ot 786.09 RESPIRATORY ABNORM NEC 01/03/2017 OMID HOLLAND DO Ot 799.02 HYPOXEMIA 01/03/2017 JOSSELIN POWELL MD (DDU) Ot 496 CHR AIRWAY OBSTRUCT NEC 01/03/2017 JOSSELIN POWELL MD (DDU) Ot V70.3 MED EXAM NEC-ADMIN PURP 01/03/2017 ALIE HERNANDEZ APRN Ot N92.0 EXCESSIVE AND FREQUENT MENSTRUATION WITH 01/03/2017 ALIE HERNANDEZ APRN Ot Z87.42 PERSONAL HISTORY OF OTH DISEASES OF THE 01/03/2017 LEE MARTINEZ DO Ot N93.9 ABNORMAL UTERINE AND VAGINAL BLEEDING, U 01/03/2017 LEE MARTINEZ DO Ot R93.8 ABNORMAL FINDINGS ON DIAGNOSTIC IMAGING 01/03/2017 LEE MARTINEZ DO Ot Z01.812 ENCOUNTER FOR PREPROCEDURAL LABORATORY E 01/03/2017 LEE MARTINEZ DO Ot Z11.2 ENCOUNTER FOR SCREENING FOR OTHER BACTER 01/03/2017 RUSH AGUILAR APRN Ot E66.01 MORBID (SEVERE) OBESITY DUE TO EXCESS CA 01/03/2017 RUSH AGUILAR APRN Ot R06.00 DYSPNEA, UNSPECIFIED 01/03/2017 RUSH AGUILAR APRN Ot R09.02 HYPOXEMIA 01/03/2017 RUSH AGUILAR APRN Ot R06.00 DYSPNEA, UNSPECIFIED 01/03/2017 RUSH AGUILAR APRN Ot R09.02 HYPOXEMIA 01/04/2017 OMID HOLLAND DO Ot 278.01 MORBID OBESITY 01/04/2017 OMID HOLLAND DO Ot 786.09 RESPIRATORY ABNORM NEC 01/04/2017 OMID HOLLAND DO Ot 799.02 HYPOXEMIA 01/04/2017 JOSSELIN POWELL MD (DDU) Ot 496 CHR AIRWAY OBSTRUCT NEC 01/04/2017 JOSSELIN POWELL MD (DDU) Ot V70.3 MED EXAM NEC-ADMIN PURP 01/04/2017 ALIE HERNANDEZ APRN Ot N92.0 EXCESSIVE AND FREQUENT MENSTRUATION WITH 01/04/2017 ALIE HERNANDEZ APRN Ot Z87.42 PERSONAL HISTORY OF OTH DISEASES OF THE 01/04/2017 LEE MARTINEZ DO Ot N93.9 ABNORMAL UTERINE AND VAGINAL BLEEDING, U 01/04/2017 LEE MARTINEZ DO Ot R93.8 ABNORMAL FINDINGS ON DIAGNOSTIC IMAGING 01/04/2017 LEE MARTINEZ DO Ot Z01.812 ENCOUNTER FOR PREPROCEDURAL LABORATORY E 01/04/2017 LEE MARTINEZ DO Ot Z11.2 ENCOUNTER FOR SCREENING FOR OTHER BACTER 01/04/2017 RUSH AGUILAR APRN Ot E66.01 MORBID (SEVERE) OBESITY DUE TO EXCESS CA 01/04/2017 RUSH AGUILAR APRN Ot R06.00 DYSPNEA, UNSPECIFIED 01/04/2017 RUSH AGUILAR APRN Ot R09.02 HYPOXEMIA 01/04/2017 JEFF, RUSH E BURLAPPER Ot R06.00 DYSPNEA, UNSPECIFIED 01/04/2017 JEFF RUSH Hong BURLAPPER Ot R09.02 HYPOXEMIA 01/05/2017 MICHELLE HAMMOND Ot Z12.31 ENCNTR SCREEN MAMMOGRAM FOR MALIGNANT NE 01/09/2017 JEFF, RUSH Hong BURLAPPER Ot R06.00 DYSPNEA, UNSPECIFIED 01/09/2017 RUSH AGUILAR BURLAPPER Ot R09.02 HYPOXEMIA 01/10/2017 MICHELLE HAMMOND Ot Z12.31 ENCNTR SCREEN MAMMOGRAM FOR MALIGNANT NE 01/17/2017 MICHELLE HAMMOND Ot Z12.31 ENCNTR SCREEN MAMMOGRAM FOR MALIGNANT NE 02/03/2017 LEE VILLEGAS MD Ot G56.01 CARPAL TUNNEL SYNDROME, RIGHT UPPER LIMB 02/03/2017 LEE VILLEGAS MD Ot Z01.818 ENCOUNTER FOR OTHER PREPROCEDURAL EXAMIN 02/03/2017 LEE VILLEGAS MD Ot Z11.2 ENCOUNTER FOR SCREENING FOR OTHER BACTER 02/16/2017 LEE VILLEGAS MD Ot E03.9 HYPOTHYROIDISM, UNSPECIFIED 02/16/2017 LEE VILLEGAS MD Ot G56.01 CARPAL TUNNEL SYNDROME, RIGHT UPPER LIMB 02/16/2017 LEE VILLEGAS MD Ot I10 ESSENTIAL (PRIMARY) HYPERTENSION 02/16/2017 LEE VILLEGAS MD Ot J44.9 CHRONIC OBSTRUCTIVE PULMONARY DISEASE, U 02/16/2017 LEE VILLEGAS MD Ot R73.03 PREDIABETES 02/16/2017 LEE VILLEGAS MD Ot Z79.899 OTHER MASSAGE THERAPIST (CURRENT) DRUG THERAPY 02/17/2017 LEE VILLEGAS MD Ot E03.9 HYPOTHYROIDISM, UNSPECIFIED 02/17/2017 LEE VILLEGAS MD Ot G56.01 CARPAL TUNNEL SYNDROME, RIGHT UPPER LIMB 02/17/2017 LEE VILLEGAS MD Ot I10 ESSENTIAL (PRIMARY) HYPERTENSION 02/17/2017 LEE VILLEGAS MD Ot J44.9 CHRONIC OBSTRUCTIVE PULMONARY DISEASE, U 02/17/2017 LEE VILLEGAS MD Ot R73.03 PREDIABETES 02/17/2017 LEE VILLEGAS MD Ot Z79.899 OTHER HALFWAY (CURRENT) DRUG THERAPY Procedures Results Test Result Range Methicillin resistant Staphylococcus aureus (MRSA) screening culture - 10:49 MRSA SCREEN RESULT MRSA ISOLATED NRG Capillary blood glucose measurement by glucometer (mass/volume) - 02/16/17 06: 17 Capillary blood glucose measurement by glucometer (mass/volume) 104 mg/dL 70-110 Urine beta human chorionic gonadotropin (hCG) measurement - 02/16/17 06:19 Urine beta human chorionic gonadotropin (hCG) measurement NEGATIVE NEGATIVE Capillary blood glucose measurement by glucometer (mass/volume) - 02/16/17 08: 10 Capillary blood glucose measurement by glucometer (mass/volume) 91 mg/dL 70-110 Encounters ACCT No. Visit Date/Time Discharge Status Pt. Type Provider Facility Loc./Unit Complaint [id number] 02/16/2017 06:00:00 2016 09:10:00 DIS Outpatient LEE VILLEGAS MD [facility] RIGHT CARPEL TUNNEL SYNDROME [id number] 02/02/2017 10:30:00 2016 10:50:00 DIS Outpatient LEE VILLEGAS MD [facility] PREOP RIGHT CARPEL TUNNEL SYNDROME [id number] 01/06/2017 10:00:00 2016 00:01:00 DIS Outpatient RUSH AGUILAR APRN [facility] PULM DYSPNEA,HYPOXIA [id number] 11/06/2015 06:14:00 2014 10:25:00 DIS Outpatient LEE MARTINEZ DO [facility] THICKENED ENDOMETRIUM; ABNORMAL UTERINE BLEEDING [id number] 09/16/2015 13:05:00 2014 23:59:59 CLS Outpatient ALIE HERNANDEZ APRN [facility] RAD HEAVY MENSTRUAL BLEEDING [id number] 08/01/2015 13:56:00 2014 23:59:59 CLS Outpatient JOSSELIN POWELL MD (DDU) [facility] RT RT DDU [id number] 07/11/2015 20:51:00 2014 06:45:00 DIS Outpatient MICHELLE HAMMOND [facility] SLEEP JAIR HYPERSOMINA SLEEP DISTURBANCE [id number] 06/03/2015 14:33:00 2014 23:59:59 CLS Outpatient OMID HOLLAND DO [facility] RAD HYPOXIA, PE [id number] 05/23/2015 10:05:00 2014 12:08:00 DIS Emergency BOUCHRA RAMIREZ, MERCEDEZ S [facility] ER BACK PAIN [id number] 04/24/2015 13:51:00 2014 13:35:00 DIS Inpatient DWIGHT RAMIREZ, OZ Jimenes [facility] SURGICAL HYPOXIA/PNEUMONITIS [id number] 01/20/2017 09:10:00 ACT Outpatient RUSH AGUILAR APRN [facility] PULM DYSPNEA,HYPOXIA [id number] 01/04/2017 14:07:00 ACT Outpatient MICHELLE HAMMOND [facility] RAD BREAST CANCER SCREENING [id number] 10/20/2016 11:35:00 ACT Outpatient RUSH AGUILAR APRN [facility] RT DYSPNEA,HYPOXIA [id number] 10/29/2015 10:02:00 ACT Outpatient LEE MARTINEZ DO [facility] PREOP THICKENED ENDOMETRIUM; ABNORMAL UTERINE BLEEDING
--- OUTSIDE RECORDS SUMMARY | 2017-03-20 16:04 | XMS REPORT ---
Author Author MICHELLE HAMMOND Organization [employer] Address Unknown Phone Unavailable Care Team Providers Care President [employer] Name Role Phone MICHELLE HAMMOND CP Unavailable Allergies No Known Allergies Problems Problem Type Condition Code Onset Dates Condition Status Problem Heavy menstrual bleeding N92.0 Active Problem History of amenorrhea Z87.42 Active Problem Stress incontinence in female N39.3 Active Problem Degenerative disc disease, lumbar M51.36 Active Problem BMI 50.0-59.9, adult Z68.43 Active Problem Obstructive sleep apnea syndrome G47.33 Active Medications No Known Medications Results No Known Results Summary Purpose [employer] Submission
--- OUTSIDE RECORDS SUMMARY | 2017-03-20 16:04 | XMS REPORT ---
Author Author ALIE HERNANDEZ [facility] [employer] Address Unknown Phone Unavailable Care Team Providers Care Biodiesel Product Manager Name Role Phone ALIE HERNANDEZ CP Unavailable Allergies, Adverse Reactions, Alerts Substance Reaction Event Type N.K.D.A. Info Not Available Non Drug Allergy Problems Problem Type Condition Code Onset Dates Condition Status Assessment History of amenorrhea Z87.42 Active Assessment Heavy menstrual bleeding N92.0 Active Problem Heavy menstrual bleeding N92.0 Active Problem History of amenorrhea Z87.42 Active Problem Stress incontinence in female N39.3 Active Problem Degenerative disc disease, lumbar M51.36 Active Assessment Dysfunctional uterine bleeding N93.8 Active Problem BMI 50.0-59.9, adult Z68.43 Active Problem Obstructive sleep apnea syndrome G47.33 Active Medications Medication Code System Code Instructions Start Date End Date Status Dosage Wrist Splint NDC 0 N/A at hs Sep 08, 2015 2 Levothyroxine Sodium [facility] 86867181968 25 MCG Orally Once a day 1 tablet Hydrochlorothiazide [facility] [address]-68 25 MG Orally Once a day Sep 08, 2015 1 [place] [address]-42 500 MG Orally 2 times a day June 05, 2015 2 tablet Lisinopril [facility] [address]-52 20 MG Orally once a day Oct 16, 2015 1 tablet Oxygen NDC 0 2 inhalation continous not defined Procedures Procedure Coding System Code Date Office Visit, Est Pt., Level 2 CPT-4 28007 Oct 16, 2015 Vital Signs Date/Time: Oct 16, 2015 Temperature 98.1 F Weight 296.2 lbs Height 60 in BMI 57.84 Index Blood Pressure Diastolic 86 mmHg Blood Pressure Systolic 124 mmHg Cardiac Monitoring Heart Rate 94 bpm Results No Known Results Summary Purpose [employer] Submission
--- OUTSIDE RECORDS SUMMARY | 2017-03-20 16:05 | XMS REPORT ---
Author OZ Redman [facility] [employer] Address Unknown Phone Unavailable Care Team Providers Care Stick Inserter Name Role Phone OZ QUINTANILLA CP Unavailable Allergies, Adverse Reactions, Alerts Substance Reaction Event Type N.K.D.A. Info Not Available Non Drug Allergy Problems Problem Type Condition Code Onset Dates Condition Status Problem Heavy menstrual bleeding N92.0 Active Problem History of amenorrhea Z87.42 Active Problem Stress incontinence in female N39.3 Active Problem Degenerative disc disease, lumbar M51.36 Active Assessment URI (upper respiratory infection) J06.9 Active Problem BMI 50.0-59.9, adult Z68.43 Active Problem Obstructive sleep apnea syndrome G47.33 Active Medications Medication Code System Code Instructions Start Date End Date Status Dosage Hydrochlorothiazide [facility] [address]-60 25 MG Orally Once a day Sep 08, 2015 1 tablet Wrist Splint NDC 0 N/A at hs Sep 08, 2015 2 Zithromax [facility] [address]-83 250 MG Orally Once a day Sep 18, 2015 Sep 23, 2015 2 tablets on the first day, then 1 tablet daily for 4 days Oxygen NDC 0 2 inhalation continous not defined Levothyroxine Sodium [facility] 91844409496 25 MCG Orally Once a day 1 tablet MetFORMIN HCl ER [facility] [address]-58 500 MG Orally 2 times a day June 05, 2015 2 tablet Procedures Procedure Coding System Code Date Office Visit, Est Pt., Level 2 CPT-4 97898 Sep 18, 2015 MEASURE BLOOD OXYGEN LEVEL CPT-4 33353 Sep 18, 2015 Vital Signs Date/Time: Sep 18, 2015 Temperature 97.8 F Weight 301.1 lbs Height 60 in Oximetry 99 % Blood Pressure Diastolic 90 mmHg Blood Pressure Systolic 124 mmHg Cardiac Monitoring Heart Rate 100 bpm BMI 58.80 Index Results No Known Results Summary Purpose [employer] Submission
--- OUTSIDE RECORDS SUMMARY | 2017-03-20 16:05 | XMS REPORT ---
Author Author MICHELLE HAMMOND [facility] e[employer] Address Unknown Phone Unavailable Care Team Providers Care Fixed Route Bus Operator Name Role Phone MICHELLE HAMMOND CP Unavailable Allergies, Adverse Reactions, Alerts Substance Reaction Event Type N.K.D.A. 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 Active Problem Hyperinsulinemia E16.1 Active Problem Stress incontinence in female N39.3 Active Problem Essential hypertension I10 Active Problem BMI 50.0-59.9, adult Z68.43 Active Problem Obstructive sleep apnea syndrome G47.33 Active Problem Heavy menstrual bleeding N92.0 Active Problem History of amenorrhea Z87.42 Active Medications Medication Code System Code Instructions Start Date End Date Status Dosage Contrave [facility] [address]-64 8-90 MG Orally then 1 tab twice a day for a week , then 1 tab AM and 2 in PM for 1 week the 2 AM and 2 Pm Dec 18, 2015January 1 tablet at bedtime for a wee Hydrochlorothiazide [facility] [address]-98 25 MG Orally Once a day Sep 08, 2015 1 tablet Levothyroxine Sodium [facility] 46814948401 25 MCG Orally Once a day 1 tablet MetFORMIN HCl ER [facility] [address]-13 500 MG Orally 2 times a day June 05, 2015 2 tablet Oxygen ND 0 2 inhalation continous not defined Lisinopril [facility] [address]-16 20 MG Orally once a day Oct 16, 2015 1 tablet Procedures Procedure Coding System Code Date ASSAY OF INSULIN CPT-4 11309 Dec 18, 2015 GLYCATED HEMOGLOBIN TEST CPT-4 88021 Dec 18, 2015 Office Visit, Est Pt., Level 3 CPT-4 19628 Dec 18, 2015 VENIPUNCT, ROUTINE* CPT-4 62063 Dec 18, 2015 Vital Signs Date/Time: Dec 18, 2015 Temperature 96.2 F Weight 298.4 lbs Height 60 in BMI 58.27 Index Blood Pressure Diastolic 60 mmHg Blood Pressure Systolic 124 mmHg Cardiac Monitoring Heart Rate 88 bpm Results Name Result Date Reference Range Unit Abnormality Flag A1C (IN HOUSE) ----Exp date 20151218 ----A1C IN HOUSE 6.1 20151218 4.3 - 5.6 % ----Lot [id number] ROUTINE VENIPUNCTURE INSULIN LEVEL ----Insulin 34.0 20151218 2.6-24.9 uIU/mL H Summary Purpose [employer]Works Submission
== END 2017-02-16 09:10 | disposition home or self-care (01) ==
LOC: SDC 06:00
PROVIDERS: ATTEND Orthopaedic Surgery
DX: G56.01 Carpal tunnel syndrome, right upper limb (principal); J44.9 Chronic obstructive pulmonary disease, unspecified; I10 Essential (primary) hypertension; E03.9 Hypothyroidism, unspecified; R73.03 Prediabetes; Z79.899 Other long term (current) drug therapy
CPT/HCPCS: 82962; 84703

== ENCOUNTER → 2019-03-07 | Outpatient (CLI) | payer MEDICAID ==
[~2019-03-07] MED LIST changes: +ACHD5005 PO; +METF-397 PO; -METF500T4 PO; +RT-ALBUTEROL SULF 2.5 MG/3 ML PRE-MIX VIAL INH ONE; +RT-ALBUTEROL SULF 2.5 MG/3 ML PRE-MIX VIAL ONE
== END ==
LOC: RT 13:44
PROVIDERS: ATTEND Nurse Practitioner Family
DX: J44.9 Chronic obstructive pulmonary disease, unspecified (principal); R06.00 Dyspnea, unspecified; R09.02 Hypoxemia; G47.33 Obstructive sleep apnea (adult) (pediatric); E66.01 Morbid (severe) obesity due to excess calories; Z68.42 Body mass index [BMI] 45.0-49.9, adult
CPT/HCPCS: 94060; 94726; 94729

== ENCOUNTER → 2019-03-26 | Outpatient (CLI) | payer MEDICAID ==
[~2019-03-26] MED LIST changes: -RT-ALBUTEROL SULF 2.5 MG/3 ML PRE-MIX VIAL INH ONE; -RT-ALBUTEROL SULF 2.5 MG/3 ML PRE-MIX VIAL ONE
--- NOTE | 2019-03-26 11:57 | Diagnostic Imaging Report ---
PROCEDURE: CT sinuses without contrast TECHNIQUE: Multiple contiguous axial images were obtained through the sinuses without the use of intravenous contrast. Coronal and sagittal reformations were then performed. Auto Exposure Controls were utilized during the CT exam to meet ALARA standards for radiation dose reduction. INDICATION: Chronic recurring sinusitis. FINDINGS: The frontal sinus is clear. There is complete opacification of the bilateral ethmoid air cells. Minimal mucosal thickening of the sphenoid sinus is seen. There is moderate right and mild left mucosal thickening of the maxillary sinuses. No definite air-fluid levels are seen. Ostiomeatal complexes are occluded. Slight nasal septal deviation to the right is noted. Mastoids demonstrate occasional opacified cells. IMPRESSION: Zaman paranasal sinus mucosal disease, as described. There is also partial opacification of bilateral mastoid air cells. Dictated by: Dictated on workstation # [id number]
== END ==
LOC: RAD 11:11
PROVIDERS: ATTEND Otolaryngology Otolaryngology/Facial Plastic Surgery
DX: J32.8 Other chronic sinusitis (principal); H74.8X3 Other specified disorders of middle ear and mastoid, bilateral
CPT/HCPCS: 70486

== ENCOUNTER 2019-08-22 13:21 | Outpatient (CLI) | payer MEDICAID ==
[~2019-08-22] VITALS: Ht 154 cm; Wt 116.2 kg
[2019-08-22] MEDS ORDERED: FLUT9.9S NS (13:33)
[2019-08-22] MEDS ORDERED: CETI10TA17 PO (13:33)
[2019-08-22] MEDS ORDERED: LEVO50TA6 PO (13:33)
[2019-08-22] MEDS ORDERED: FERR325T18 PO (13:33)
[2019-08-22] MEDS ORDERED: NALT1TAB PO (13:33)
[2019-08-22] MEDS ORDERED: SERT50TA9 PO (13:33)
[2019-08-22 13:37] VITALS: BP 121/80
[2019-08-22 14:06] LABS: BASOPHILS # (AUTO) 0.1 10^3/uL (0.0-0.1); BASOPHILS % (AUTO) 1 % (0-10); EOSINOPHILS # (AUTO) 0.5 10^3/uL (0.0-0.3); EOSINOPHILS % (AUTO) 5 % (0-10); HEMATOCRIT 36 % (35-52); LYMPHOCYTES % (AUTO) 35 % (12-44); MEAN CORPUSCULAR HEMOGLOBIN 27 PG (25-34); MEAN CORPUSCULAR HGB CONC 33 G/DL (32-36); MEAN CORPUSCULAR VOLUME 82 FL (80-99); MEAN PLATELET VOLUME 9.6 FL (7.4-10.4); MONOCYTES % (AUTO) 9 % (0-12); NEUTROPHILS % (AUTO) 51 % (42-75); PLATELET COUNT 448 10^3/uL (130-400); RED CELL DISTRIBUTION WIDTH 14.8 % (10.0-14.5); WHITE BLOOD COUNT 11.6 10^3/uL (4.3-11.0)
[2019-08-22 14:20] LABS: BUN/CREATININE RATIO 15; CALCIUM 10.2 MG/DL (8.5-10.1); CARBON DIOXIDE 27 MMOL/L (21-32); CHLORIDE 99 MMOL/L (98-107); CREATININE SERUM 0.75 MG/DL (0.60-1.30); GFR ESTIMATED > 60; GLUCOSE 77 MG/DL (70-105); POTASSIUM 3.5 MMOL/L (3.6-5.0); SODIUM 137 MMOL/L (135-145)
--- NOTE | 2019-08-22 14:21 | Diagnostic Imaging Report ---
CLINICAL INDICATION: Preop chest x-ray on chronic otitis media. Exam: Chest x-ray PA and lateral views. Comparisons: Chest x-ray dated 04/28/2015. Findings: Lungs/pleura: There is interval improved aeration of both lung christensen. Lungs are now clear. There is no pneumothorax. There is no pleural effusion. Mediastinum: Unremarkable. Pulmonary vasculature: Unremarkable. Heart: Stable mild cardiomegaly. Bones/extrathoracic soft tissue: There are mildly hypertrophic degenerative osteophytes scattered throughout the thoracic spine. Impression: 1: There is no radiographic evidence of acute cardiopulmonary process. 2: Stable mild cardiomegaly with no significant pulmonary vascular congestion. 3: There is improved aeration of both lungs. Lungs are now clear. Dictated by: Dictated on workstation # [id number]
== END 2019-08-22 14:56 ==
LOC: PREOP 13:21
PROVIDERS: ATTEND Otolaryngology Otolaryngology/Facial Plastic Surgery
DX: Z01.818 Encounter for other preprocedural examination (principal)
CPT/HCPCS: 36415; 71046; 80048; 85025; 87081; 93005

== ENCOUNTER 2019-08-24 06:06 | Day surgery (SDC) | payer MEDICAID ==
[~2019-08-24] VITALS: Ht 154 cm; Wt 116.2 kg
[2019-08-24] VITALS (8 sets, daily range): BP systolic 95–123; BP diastolic 49–76
[~2019-08-24 06:06] MED LIST changes: +CETI10TA17 PO; +FERR325T18 PO; +FLUT9.9S NS; +LEVO50TA6 PO; +NALT1TAB PO; +SERT50TA9 PO
[2019-08-24] MEDS ORDERED: LIDOCAINE PF 2% 5 ML (XYLOCAINE) VIAL ONE (07:01)
[2019-08-24] MEDS ORDERED: proPOfol 200 MG/20 ML (DIPRIVAN) VIAL IV ONE (07:01)
[2019-08-24] MEDS ORDERED: SEVOFLURANE (ULTANE) 15 ML INHAL SOLN ONE (07:01)
[2019-08-24] MEDS ORDERED: fentaNYL INJECTION 100 MCG/2 ML AMP ONE (07:01)
[2019-08-24] MEDS ORDERED: ONDANSETRON 4 MG/2 ML (SDV) Z0FRAN ONE (07:01)
[2019-08-24] MEDS ORDERED: MIDAZOLAM 2 MG/2 ML (VERSED) VIAL ONE (07:02)
--- NOTE | 2019-08-24 07:07 | Progress Note-Pre Operative ---
Pre-Operative Progress Note H&P Reviewed The H&P was reviewed, patient examined and no changes noted. Date Seen by Provider: Aug 24, 2019 Time Seen by Provider: 07:00 Date H&P Reviewed: Aug 24, 2019 Time H&P Reviewed: 07:00 Pre-Operative Diagnosis: LEE Laird MD Aug 24, 2019 07:07
[2019-08-24] MEDS ORDERED: LACTATED RINGERS 1,000 ML IV PRN (07:18)
--- NOTE | 2019-08-24 07:44 | Progress Note-Post Operative ---
Post-Operative Progess Note Surgeon (s)/Accountant Machine Processing (s) Surgeon LEE HAUSER MD Accountant Machine Processing n/a Pre-Operative Diagnosis Bilat CHARISSE Post-Operative Diagnosis same Post-Op Procedure Note Date of Procedure: Aug 24, 2019 Name of Procedure Performed: BMT Description & Findings Description and Findings: n/a Anesthesia Type mask Estimated Blood Loss minimal Packing none. Specimen(s) collected/removed none LEE HAUSER MD Aug 24, 2019 07:44
[2019-08-24] MEDS ORDERED: APAP 325 MG/10.15 ML LIQ (TYLENOL) UDC PO PRN (07:45)
[2019-08-24] MEDS ORDERED: ONDANSETRON 4 MG/2 ML (SDV) Z0FRAN IVP PRN (08:00)
[2019-08-24] MEDS ORDERED: morphine INJ 10 MG/ML 1ML (SYR OR VIAL) IVP ONE (08:00)
[2019-08-24] MEDS ORDERED: CIPR5DRO OP (08:43)
== END 2019-08-24 09:15 | disposition home or self-care (01) ==
LOC: SDC 06:06
PROVIDERS: ATTEND Otolaryngology Otolaryngology/Facial Plastic Surgery
DX: H65.23 Chronic serous otitis media, bilateral (principal); I10 Essential (primary) hypertension; J45.909 Unspecified asthma, uncomplicated; G47.33 Obstructive sleep apnea (adult) (pediatric); E11.9 Type 2 diabetes mellitus without complications; E03.9 Hypothyroidism, unspecified; E66.01 Morbid (severe) obesity due to excess calories; Z68.42 Body mass index [BMI] 45.0-49.9, adult; Z99.89 Dependence on other enabling machines and devices; Z79.84 Long term (current) use of oral hypoglycemic drugs; Z79.899 Other long term (current) drug therapy
CPT/HCPCS: 82962; 84703; 87081

== ENCOUNTER → 2020-03-25 | Outpatient (CLI) | payer MEDICAID ==
[~2020-03-25] MED LIST changes: +CIPR5DRO OP
--- NOTE | 2020-03-25 12:34 | Diagnostic Imaging Report ---
INDICATION: Routine screening. COMPARISON: 01/04/2017. TECHNIQUE: 2D and 3D bilateral screening mammography was performed with CAD. FINDINGS: Both breasts remain heterogeneously dense, limiting the sensitivity of mammography. The parenchymal pattern is stable. No mass or malignant appearing microcalcifications are seen. The axillae are unremarkable. IMPRESSION: No mammographic features suspicious for malignancy are identified. ACR BI-RADS Category 1: Negative. Result letter will be mailed to the patient. Note: At least 10% of breast cancer is not imaged by mammography. Dictated by: Dictated on workstation # [id number]
== END ==
LOC: RAD 09:00
PROVIDERS: ATTEND Nurse Practitioner Community Health
DX: Z12.31 Encounter for screening mammogram for malignant neoplasm of breast (principal)
CPT/HCPCS: 77063; 77067

== ENCOUNTER 2020-06-09 05:32 | Outpatient (RCR) | payer MEDICAID ==
[~2020-06-09] VITALS: Ht 154 cm; Wt 122.0 kg
[~2020-06-09 05:32] MED LIST changes: +EXEN5PEN2 SQ
== END 2020-06-09 10:18 | disposition home or self-care (01) ==
LOC: PREOP 05:32
PROVIDERS: ATTEND Orthopaedic Surgery
DX: Z01.812 Encounter for preprocedural laboratory examination (principal); G56.02 Carpal tunnel syndrome, left upper limb; Z20.828 Contact with and (suspected) exposure to other viral communicable diseases
CPT/HCPCS: 87635

== ENCOUNTER 2020-06-11 08:24 | Day surgery (SDC) | payer MEDICAID ==
--- NOTE | 2020-06-03 06:41 | HISTORY AND PHYSICAL ---
DATE OF SERVICE: This will be for outpatient surgery on 06/11/2020 for left carpal tunnel. HISTORY OF PRESENT ILLNESS: The patient is a 45-year-old female with complaints of left wrist pain. She previously underwent right carpal tunnel release and did very well. She had progressive worsening left hand pain and paresthesias, which is worse at night. This has been progressive in nature over the last several years due to functional impairment and failure to improve with conservative measures, the patient elected to proceed with surgical intervention. REVIEW OF SYSTEMS: No chest pain, no shortness of breath, no dysuria. PAST MEDICAL HISTORY: Back pain, COPD, hypertension, hypothyroidism, sleep apnea, borderline diabetes, sciatica, hypoxemia, allergic rhinitis, anemia. PAST SURGICAL HISTORY: . FAMILY HISTORY: Significant for hypertension, hyperlipidemia. PRIMARY CARE PROVIDER: [facility]. MEDICATIONS: Spiriva, Ventolin, Advair, metformin, hydrochlorothiazide, levothyroxine, lisinopril, sertraline, Flonase, iron, [place], albuterol. ALLERGIES: No known drug allergies. SOCIAL HISTORY: The patient denies alcohol, tobacco use. PHYSICAL EXAMINATION: GENERAL: The patient is well developed, well-nourished, in no acute distress. HEENT: Normocephalic, atraumatic. Pupils are equal, round and reactive to light. Oropharynx is clear. NECK: Supple, no lymphadenopathy. LUNGS: Clear to auscultation bilaterally. HEART: Regular rate and rhythm. ABDOMEN: Soft, nontender, nondistended. EXTREMITIES: The left hand demonstrates positive Tinel's of carpal tunnel, positive Phalen's maneuver. She has decreased sensation in median distribution. No thenar atrophy is noted. She has negative Spurling's maneuver. IMPRESSION: Left carpal tunnel syndrome. PLAN: Left carpal tunnel release. Risks, benefits, options, ramifications and recovery were discussed at length with the patient. She understands and wishes to proceed. Job ID: [id number] DocumentID: [id number] Dictated Date: 06/02/2020 10:05:41 Route Sales Delivery Driver Date: 06/02/2020 10:46:15 Dictated By: LEE VILLEGAS MD
[2020-06-11] VITALS (7 sets, daily range): BP systolic 92–122; BP diastolic 54–72
[~2020-06-11] VITALS: Ht 154 cm; Wt 122.0 kg
[~2020-06-11 08:24] MED LIST changes: +HYDROcodone/APAP 5 MG/325 MG (LORTAB) TAB PO PRN
[2020-06-11] MEDS ORDERED: LACTATED RINGERS 1,000 ML IV PRN (08:46)
[2020-06-11] MEDS ORDERED: ceFAZolin INJECTION 1,000 MG in WATER (STERILE) FOR INJECTION 10 ML IV ONE (09:00)
[2020-06-11] MEDS ORDERED: ceFAZolin INJECTION 1,000 MG ONE (09:11)
[2020-06-11] MEDS ORDERED: WATER (STERILE) FOR INJECTION 10 ML ONE (09:11)
--- NOTE | 2020-06-11 09:30 | Progress Note-Pre Operative ---
Pre-Operative Progress Note H&P Reviewed The H&P was reviewed, patient examined and no changes noted. Date Seen by Provider: Jun 11, 2020 Time Seen by Provider: : Date H&P Reviewed: Jun 11, 2020 Time H&P Reviewed: : Pre-Operative Diagnosis: left carpal tunnel syndrome LEE VILLEGAS MD Jun 11, 2020 09:30
--- NOTE | 2020-06-11 09:31 | Progress Note-Post Operative ---
Post-Operative Progess Note Surgeon (s)/Account Executive Trainee (s) Surgeon LEE VILLEGAS MD Account Executive Trainee: Preston Vines Pre-Operative Diagnosis left carpal tunnel syndrome Post-Operative Diagnosis left carpal tunnel syndrome Procedure & Operative Findings Date of Procedure 06/11/20 Procedure Performed/Findings left carpal tunnel release Anesthesia Type MAC plus local Estimated Blood Loss Estimated blood loss (mL): minimal Specimens/Packing Specimens Removed none Packing: none LEE VILLEGAS MD Jun 11, 2020 09:31
[2020-06-11] MEDS ORDERED: proPOfol 200 MG/20 ML (DIPRIVAN) VIAL IV ONE ×2 (10:16→11:01)
[2020-06-11] MEDS ORDERED: MIDAZOLAM 2 MG/2 ML (VERSED) VIAL ONE (10:16)
[2020-06-11] MEDS ORDERED: LIDOCAINE 1% INJ 20 ML 20 ML VIAL ONE (10:18)
[2020-06-11] MEDS ORDERED: BUPIVACAINE 0.25% 30 ML (SENSORCAINE) VIAL ONE (10:18)
[2020-06-11] MEDS ORDERED: fentaNYL INJECTION 100 MCG/2 ML AMP ONE (10:35)
--- NOTE | 2020-06-11 11:10 | Anesthesia-General Post-Op ---
MAC Patient Condition Mental Status/LOC: Same as Preop Cardiovascular: Satisfactory Nausea/Vomiting: Absent Respiratory: Satisfactory Pain: Controlled Complications: Absent Post Op Complications Complications None Follow Up Care/Instructions Patient Instructions None needed. Anesthesiology Discharge Order Discharge Order Patient is doing well, no complaints, stable vital signs, no apparent adverse anesthesia problems. No complications reported per nursing. DEBO DUNBAR CRNA Jun 11, 2020 11:10
[2020-06-11] MEDS ORDERED: morphine INJ 10 MG/ML 1ML (SYR OR VIAL) IVP ONE (11:15)
[2020-06-11] MEDS ORDERED: HYDR-3812 PO (11:58)
--- NOTE | 2020-06-11 15:02 | OPERATIVE REPORT ---
DATE OF SERVICE: 06/11/2020 PREOPERATIVE DIAGNOSIS: Left carpal tunnel syndrome. POSTOPERATIVE DIAGNOSIS: Left carpal tunnel syndrome. PROCEDURE PERFORMED: Left open carpal tunnel release. SURGEON: Baltazar Villegas MD. TENNIS NET MAKER: Preston Vines, who assisted throughout the procedure and closed the incision. ANESTHESIA: Monitored anesthesia care plus local by Colin Sr CRNA. TOURNIQUET TIME: 3 minutes at 250 mmHg. ESTIMATED BLOOD LOSS: Minimal. DRAINS: None. COMPLICATIONS: None. POSTOPERATIVE PLAN: Routine protocol. The patient was transferred to the recovery room awake and in stable condition. STATEMENT OF MEDICAL NECESSITY: The patient is a 45-year-old female with complaints of lefthand pain and paresthesias. She had a positive Tinel's with carpal tunnel with the positive Phalen's maneuver. She tried rest, activity modifications, anti-inflammatories. Due to functional impairment and failure to improve with conservative measures, the patient elected to proceed with surgical intervention. DESCRIPTION OF PROCEDURE: After risks and benefits of the procedure were discussed and questions were answered, informed consent was signed and placed on the chart, the operative site was confirmed in the preoperative holding area initialed by the surgeon. The patient was then transported to the operating room and after adequate levels of monitored anesthesia care were obtained, a timeout was called confirming the operative site and under sterile conditions, incision site in the left hand was infiltrated with combination of plain lidocaine and plain Marcaine. The left upper extremity was prepped and draped in the usual sterile fashion with the arm elevated, tourniquet insufflated to 250 mmHg. An incision was made in line with the radial border of the ring finger overlying the transverse carpal ligament. The underlying soft tissues were sharply dissected. The carpal ligament was identified and sharply incised by pushing through with the scalpel blade. This was confirmed fully released distally under direct visualization. The median nerve was identified and carefully protected throughout the procedure and intact at the conclusion of the procedure. Proximally, the transverse carpal ligament was spread above and below with dissection scissors and then opened while carefully protecting the median nerve. This was confirmed fully released with a freer. The tourniquet was deflated for a total time of three minutes. Pressure was used for hemostasis. Wound was copiously irrigated and then closed in a running fashion with 4-0 Vicryl in a running alternating horizontal mattress fashion. A soft dressing and brace were applied. The patient was transferred to the recovery room awake and in a stable condition. Job ID: [id number] DocumentID: [id number] Dictated Date: 06/11/2020 11:12:42 Oil Field Laborer Date: 06/11/2020 15:00:37 Dictated By: BALTAZAR VILLEGAS MD
== END 2020-06-11 12:50 | disposition home or self-care (01) ==
LOC: SDC 08:24
PROVIDERS: ATTEND Orthopaedic Surgery
DX: G56.02 Carpal tunnel syndrome, left upper limb (principal); Z11.2 Encounter for screening for other bacterial diseases; J44.9 Chronic obstructive pulmonary disease, unspecified; I10 Essential (primary) hypertension; R73.03 Prediabetes; E03.9 Hypothyroidism, unspecified; G47.30 Sleep apnea, unspecified; J30.2 Other seasonal allergic rhinitis; D64.9 Anemia, unspecified; M54.40 Lumbago with sciatica, unspecified side; Z79.899 Other long term (current) drug therapy; Z79.890 Hormone replacement therapy; Z79.84 Long term (current) use of oral hypoglycemic drugs
CPT/HCPCS: 84703; 87081

== ENCOUNTER → 2020-12-08 | Outpatient (CLI) | payer MEDICAID ==
[~2020-12-08] MED LIST changes: -HYDROcodone/APAP 5 MG/325 MG (LORTAB) TAB PO PRN; +RT-ALBUTEROL SULF 2.5 MG/3 ML PRE-MIX VIAL INH ONE
== END ==
LOC: RT 12:30
PROVIDERS: ATTEND Nurse Practitioner Family
DX: J44.9 Chronic obstructive pulmonary disease, unspecified (principal); G47.33 Obstructive sleep apnea (adult) (pediatric); E66.01 Morbid (severe) obesity due to excess calories; R00.0 Tachycardia, unspecified
CPT/HCPCS: 94060; 94726; 94729

== ENCOUNTER → 2021-02-16 | Outpatient (CLI) | payer MEDICAID ==
[~2021-02-16] MED LIST changes: +CATHETER FLUSH 10 ML SYR IV PRN; +HOLD METFORMIN - RECEIVED CONTRAST 20 ML VIAL IV SCH; +IOHEXOL 350 MG/ML 100 ML (OMNIPAQUE 350) VIAL IV ONE; -LISI-552 PO; +LISI20TA26 PO; +NS 100 ML (IVPB) BAG IV ONE; -RT-ALBUTEROL SULF 2.5 MG/3 ML PRE-MIX VIAL INH ONE; +SERT-413 PO; -SERT50TA9 PO
[2021-02-16 08:11] LABS: BUN/CREATININE RATIO 17; CREATININE SERUM 0.78 MG/DL (0.60-1.30); GFR ESTIMATED > 60
--- NOTE | 2021-02-16 10:35 | Diagnostic Imaging Report ---
PROCEDURE: CT chest with contrast only. TECHNIQUE: Multiple contiguous axial images were obtained through the chest after administration of intravenous contrast. Auto Exposure Controls were utilized during the CT exam to meet ALARA standards for radiation dose reduction. INDICATION: COPD, asthma Compared with chest CT 06/03/2015 FINDINGS: No lung mass, suspicious nodule or focal pulmonary consolidation. No findings of edema or pneumonia. No effusion or pneumothorax. There is no hilar, mediastinal or axillary lymphadenopathy. There is a right lobe thyroid nodularity and mass off its lower pole extending below the thoracic inlet. This thyroid reflects a change in appearance from 2015 nonemergent correlating to thyroid ultrasound recommended. The aorta is patent and nonaneurysmal. No central PE. The visualized upper abdomen appeared nonacute. IMPRESSION: Enlarged and nodular right lobe thyroid, nonemergent ultrasound recommended. Remaining chest unremarkable. No acute appearing abnormality. Dictated by: Dictated on workstation # [id number]
== END ==
LOC: RAD 07:39
PROVIDERS: ATTEND Nurse Practitioner Family
DX: J44.9 Chronic obstructive pulmonary disease, unspecified (principal); E04.1 Nontoxic single thyroid nodule
CPT/HCPCS: 36415; 71260; 82565; 84520

== ENCOUNTER → 2021-03-12 | Outpatient (CLI) | payer MEDICAID ==
[~2021-03-12] VITALS: Ht 154.9 cm; Wt 125.5 kg
[~2021-03-12] MED LIST changes: -CATHETER FLUSH 10 ML SYR IV PRN; -HOLD METFORMIN - RECEIVED CONTRAST 20 ML VIAL IV SCH; -IOHEXOL 350 MG/ML 100 ML (OMNIPAQUE 350) VIAL IV ONE; +LIDOCAINE 1% INJ 20 ML 20 ML VIAL INJ ONE; +LIDOCAINE 1% INJ 20 ML 20 ML VIAL ONE; -NS 100 ML (IVPB) BAG IV ONE
--- NOTE | 2021-03-12 17:02 | Diagnostic Imaging Report ---
INDICATION: Right thyroid nodule. Patient presents for ultrasound-guided fine-needle aspiration and biopsy. PROCEDURE: Patient was brought to the procedure room and placed on table in the supine position. Ultrasound imaging of the right neck was performed to evaluate appropriate entry site. Right neck was then prepped and draped in the usual sterile fashion. A small amount of 1% lidocaine was utilized for local anesthesia. A total of four passes were made into the solid dominant nodule in the right lobe of the thyroid utilizing 25-gauge needles and fine-needle aspiration technique. A single pass was made into the lesion with a Rotex needle and a Rotex biopsy was performed. Hemostasis was obtained using manual compression. Patient tolerated the procedure well and left the department in stable condition. IMPRESSION: Successful right lobe thyroid nodule fine-needle aspiration and Rotex biopsy. Pathology results are currently pending. Dictated by: Dictated on workstation # [id number]
== END ==
LOC: RAD 10:00
PROVIDERS: ATTEND Pediatrics
DX: E04.1 Nontoxic single thyroid nodule (principal)
CPT/HCPCS: 10005

== ENCOUNTER 2021-07-21 12:00 | Outpatient (CLI) | payer MEDICAID ==
[~2021-07-21] VITALS: Ht 154.9 cm; Wt 127.0 kg
[~2021-07-21 12:00] MED LIST changes: -LIDOCAINE 1% INJ 20 ML 20 ML VIAL INJ ONE; -LIDOCAINE 1% INJ 20 ML 20 ML VIAL ONE
[2021-07-21 12:11] VITALS: BP 126/74
[2021-07-21] MEDS ORDERED: ONDANSETRON 4 MG/2 ML (SDV) Z0FRAN IV PRN (12:15)
[2021-07-21] MEDS ORDERED: diphenhydrAMINE 50 MG/ML INJ (BENADRYL) IV PRN (12:15)
[2021-07-21] MEDS ORDERED: ACETAMINOPHEN 500 MG TAB (TYLENOL) PO PRN (12:15)
[2021-07-21] MEDS ORDERED: EPINEPHrine INJECTION 1 MG/ML AMP IM PRN (12:15)
[2021-07-21] MEDS ORDERED: CASIRIVIMAB/IMDEVIMAB 1,200 MG in NS (IVPB) 250 ML IV ONE (12:15)
[2021-07-21 13:55] VITALS: BP 141/75
== END 2021-07-21 14:35 | disposition home or self-care (01) ==
LOC: INFUSION 12:00
PROVIDERS: ATTEND Nurse Practitioner Family
DX: Z23 Encounter for immunization (principal); U07.1 COVID-19

== ENCOUNTER 2022-02-04 06:35 | Outpatient (CLI) | payer MEDICAID ==
[~2022-02-04] VITALS: Ht 155 cm; Wt 125.8 kg
[2022-02-04] MEDS ORDERED: DULO60CA59 PO (11:49)
== END 2022-02-04 12:16 ==
LOC: PREOP 06:35
PROVIDERS: ATTEND Surgery
DX: Z01.818 Encounter for other preprocedural examination (principal)

== ENCOUNTER 2022-02-16 13:49 | Day surgery (SDC) | payer MEDICAID ==
[~2022-02-16] VITALS: Ht 155 cm; Wt 125.8 kg
[~2022-02-16 13:49] MED LIST changes: +DULO60CA59 PO
[2022-02-16] MEDS ORDERED: LACTATED RINGERS 1,000 ML IV ONE (13:52)
[2022-02-16] MEDS ORDERED: LACTATED RINGERS 1,000 ML IV STA (14:03)
[2022-02-16 14:15] VITALS: BP 148/74
[2022-02-16] MEDS ORDERED: HURRICAINE EXT TUBE (BENZOCAINE) XX PRN (14:15)
--- NOTE | 2022-02-16 14:25 | Progress Note-Pre Operative ---
Pre-Operative Progress Note H&P Reviewed The H&P was reviewed, patient examined and no changes noted. Date Seen by Provider: Feb 16, 2022 Time Seen by Provider: 14:22 Date H&P Reviewed: Feb 16, 2022 Time H&P Reviewed: :22 Pre-Operative Diagnosis: Melena, occult blood in stool, H. pylori GI tract infection ZENON DUNN DO Feb 16, 2022 14:25
[2022-02-16] MEDS ORDERED: KETAMINE 50 MG/5 ML SYRINGE ONE (15:13)
[2022-02-16] MEDS ORDERED: PROPOFOL INJECTION 50 ML IV ONE ×2 (15:13→15:32)
[2022-02-16] MEDS ORDERED: MIDAZOLAM 2 MG/2 ML (VERSED) VIAL ONE (15:13)
[2022-02-16 15:45] VITALS: BP 137/67
[2022-02-16 15:50] VITALS: BP 128/66
--- NOTE | 2022-02-16 15:53 | Progress Note-Post Operative ---
Post-Operative Progess Note Surgeon (s)/Speech Therapist (s) Surgeon ZENON DUNN DO Speech Therapist: na Pre-Operative Diagnosis Melena, occult blood in stool, H. pylori GI tract infection Post-Operative Diagnosis normal egd, colon polyps Procedure & Operative Findings Date of Procedure 02/16/22 Procedure Performed/Findings egd c biopsies, colonoscopy c hot bx polypectomy x 2 Anesthesia Type per guest relations agent Estimated Blood Loss Estimated blood loss (mL): none Specimens/Packing Specimens Removed antrum, ge, colon polyps ZENON DUNN DO Feb 16, 2022 15:53
--- NOTE | 2022-02-16 15:54 | Discharge Inst-Simple/Standard ---
Discharge Inst-Standard Patient Instructions/Follow Up Plan of Care/Instructions/FU: 2 weeks Keron Activity as Tolerated: Yes Discharge Diet: Regular Diet ZENON DUNN DO Feb 16, 2022 15:54
[2022-02-16 15:55] VITALS: BP 131/66
[2022-02-16 16:15] VITALS: BP 130/66
[2022-02-16 16:25] VITALS: BP 130/66
--- NOTE | 2022-02-16 20:21 | OPERATIVE REPORT ---
DATE OF SERVICE: 02/16/2022 PREOPERATIVE DIAGNOSES: Melena, occult blood in stool, H. pylori, and gastrointestinal tract infection. POSTOPERATIVE DIAGNOSES: Normal EGD, colon polyps. PROCEDURE: EGD with biopsies, colonoscopy with hot biopsy polypectomy x3. SURGEON: Zenon Cabrales DO ANESTHESIA: Per [employer] CONSULTANT. ESTIMATED BLOOD LOSS: None. COMPLICATIONS: None. SPECIMENS: Antrum, GE junction, and colon polyps. INDICATIONS: The patient is a 47-year-old female who had some melena and was found to have occult positive blood in stool. She had a history of H. pylori, which has been treated. She understands risks and benefits of procedures and wishes to proceed. Consent was signed in the chart. DESCRIPTION OF PROCEDURE: The patient was taken to the endoscopy suite, placed in left lateral recumbent position. Timeout was performed. Scope was inserted in mouth, down the esophagus, stomach and into the duodenum without difficulty. There were no polyps, masses or ulcerations within the duodenum. Scope was slowly retracted back to stomach where it was further insufflated. No polyps, masses or ulcerations. Biopsy of the antrum was obtained. Scope was retroflexed noting no other pathology. Scope was returned to its normal position, slowly withdrawn to distal esophagus. Biopsy of GE junction was obtained. No polyps, masses, or ulcerations. Scope was slowly retracted back to completely remove noting no other pathology. Digital rectal exam was performed. No palpable polyps, masses, or ulcerations. Scope was inserted into the rectum and advanced all the way to cecum with minimal difficulty. Prep was adequate. Scope was then slowly retracted back, also utilize . No polyps, masses, or ulcerations in the cecum. In the ascending colon, a small polyp was present, which hot biopsy polypectomy was performed. Scope was then continuously retracted back. No polyps, masses, or ulcerations within the remainder of the ascending, transverse, descending colon. In the sigmoid colon, 2 polyps were present, which hot biopsy polypectomy was performed. Scope was then continuously retracted back into the rectum, where it was also retroflexed noting no other pathology. Scope was returned to its normal position, slowly withdrawn until completely removed. The patient tolerated procedure well without any complications. She was taken to recovery room in stable condition. RECOMMENDATIONS: The patient will need a repeat colonoscopy in 5 years. Any issues before that be seen at that time. She will follow up in the office to discuss pathology results. Any issues before 5 years, she should have repeat colonoscopy at that time. CC: Humza Preciado -- requested, unable to deliver. Job ID: [id number] DocumentID: [id number] Dictated Date: 02/16/2022 16:00:34 Diabetes Clinical Manager Date: 02/16/2022 20:21:34 Dictated By: ZENON CABRALES DO
== END 2022-02-16 16:25 | disposition home or self-care (01) ==
LOC: ENDO 13:49
PROVIDERS: ATTEND Surgery
DX: K63.5 Polyp of colon (principal); G47.33 Obstructive sleep apnea (adult) (pediatric); K29.50 Unspecified chronic gastritis without bleeding; K63.89 Other specified diseases of intestine; E66.01 Morbid (severe) obesity due to excess calories; Z68.43 Body mass index [BMI] 50.0-59.9, adult; Z87.891 Personal history of nicotine dependence; Z79.52 Long term (current) use of systemic steroids; Z09 Encounter for follow-up examination after completed treatment for conditions other than malignant neoplasm; Z87.19 Personal history of other diseases of the digestive system
CPT/HCPCS: 84703

== ENCOUNTER → 2022-07-16 | Outpatient (CLI) | payer MEDICAID ==
--- NOTE | 2022-07-16 09:34 | Diagnostic Imaging Report ---
PROCEDURE: MRI lumbar spine without contrast. TECHNIQUE: Multiplanar, multisequence MRI of the lumbar spine was performed without contrast. INDICATION: Chronic low back pain. No known injury. COMPARISON: 05/23/2015. FINDINGS: 5 lumbar type vertebral bodies are visualized with the last well-formed disc space designated L5-S1. No acute fracture or dislocation is seen in the lumbar spine. Alignment is anatomic. Vertebral body heights are well-maintained. The bone marrow signal is normal. The conus terminates at the L1 level. No masses are seen associated with the conus or nerve roots of the cauda equina. No epidural collections are identified. Multilevel degenerative changes are seen in the lumbar spine with disc bulges, facet hypertrophy, and buckling of the ligamentum flavum. T12-L1: No significant spinal canal or foraminal stenosis. L1-L2: Right subarticular disc bulge and facet hypertrophy results in no significant spinal canal narrowing, mild right lateral recess narrowing, and no foraminal stenosis. L2-L3: No significant spinal canal or foraminal stenosis. L3-L4: No significant spinal canal or foraminal stenosis. L4-L5: Broad-based disc bulge, facet hypertrophy, and buckling of the ligamentum flavum results in mild spinal canal narrowing and [id number] bilateral foraminal narrowing. L5-S1: Disc desiccation with right subarticular protrusion, facet hypertrophy, and buckling of the ligamentum flavum results in [id number] spinal canal narrowing, severe right lateral recess stenosis, and moderate bilateral foraminal stenosis. Paravertebral soft tissues are unremarkable. IMPRESSION: 1. No acute fracture or dislocation in the lumbar spine. 2. Multilevel degenerative changes in the lumbar spine, greatest at L4-L5 and L5-S1. Dictated by: Dictated on workstation # [id number]
== END ==
LOC: RAD 08:12
PROVIDERS: ATTEND Pediatrics
DX: M47.816 Spondylosis without myelopathy or radiculopathy, lumbar region (principal); M47.817 Spondylosis without myelopathy or radiculopathy, lumbosacral region; M51.36 Other intervertebral disc degeneration, lumbar region
CPT/HCPCS: 72148

== ENCOUNTER → 2022-12-07 | Outpatient (CLI) | payer MEDICAID ==
[~2022-12-07] MED LIST changes: +RT-ALBUTEROL SULF 2.5 MG/3 ML PRE-MIX VIAL INH ONE
== END ==
LOC: RT 08:19
PROVIDERS: ATTEND Nurse Practitioner Family
DX: J45.909 Unspecified asthma, uncomplicated (principal)
CPT/HCPCS: 94060; 94726; 94729